=== PATIENT | male | born 1995 | race Caucasian/White ===

== ENCOUNTER 2017-10-05 18:01 | Inpatient (IN) | payer MEDICAID ==
[~2017-10-05] VITALS: Ht 177.8 cm; Wt 80.0 kg
[2017-10-05 19:57] LABS: BASOPHIL % 0.3 % (0-2); PLATELET COUNT 165 x10^3mcL (130-400); RED CELL DISTRIBUTION WIDTH 12.1 % (11.5-14.5)
[2017-10-05 20:06] LABS: CALCIUM 8.5 mg/dL (8.5-10.1); CARBON DIOXIDE 26.1 mmol/L (21-32); CHLORIDE SERUM 103 mmol/L (98-107); CREATININE SERUM 0.7 mg/dL (0.7-1.3); GFR1 > 60 mL/min; GLUCOSE SERUM 98 mg/dL (74-106); POTASSIUM SERUM 3.5 mmol/L (3.5-5.1); SODIUM SERUM 136 mmol/L (136-145)
[2017-10-05 21:31] VITALS: BP 144/87
[2017-10-05 21:34] VITALS: BP 142/87
[2017-10-05 21:49] LABS: CHOLESTEROL/HDL RATIO 2.8; MAGNESIUM 1.8 mg/dL (1.8-2.4); PHOSPHOROUS 3.8 mg/dL (2.5-4.9)
[2017-10-05 21:51] LABS: T3 TOTAL 1.17 ng/mL
[2017-10-05 21:52] LABS: FREE T4 0.97 ng/dL (0.76-1.46); FREE THYROXINE INDEX 2.7 ug/dL (1.4-4.5); T4(THYROXINE) 7.4 ug/dL (4.7-13.3)
[2017-10-05 22:10] LABS: microscopic required? NO
[2017-10-05 22:23] LABS: UA SPECIFIC GRAVITY 1.025 (1.005-1.035); urine erythrocyte NEGATIVE (NEGATIVE)
[2017-10-05 22:27] LABS: AMPHETAMINE QUAL UR POSITIVE (NEG <=1000)
[2017-10-06 06:08] LABS: BASOPHIL % 0.7 % (0-2); CALCIUM 8.3 mg/dL (8.5-10.1); CARBON DIOXIDE 27.4 mmol/L (21-32); CHLORIDE SERUM 107 mmol/L (98-107); CREATININE SERUM 0.8 mg/dL (0.7-1.3); GFR1 > 60 mL/min; GLUCOSE SERUM 103 mg/dL (74-106); PLATELET COUNT 154 x10^3mcL (130-400); POTASSIUM SERUM 3.7 mmol/L (3.5-5.1); RED CELL DISTRIBUTION WIDTH 12.1 % (11.5-14.5); SODIUM SERUM 139 mmol/L (136-145)
[2017-10-06 06:24] VITALS: BP 124/70
== END 2017-10-06 08:45 | disposition left against medical advice (07) | DRG 351 ==
LOC: ED 18:01 → DU 20:42
PROVIDERS: Emergency Medicine; ADMIT Family Medicine
DX: M65.841 Other synovitis and tenosynovitis, right hand (principal); F11.10 Opioid abuse, uncomplicated; F15.10 Other stimulant abuse, uncomplicated; Z68.25 Body mass index [BMI] 25.0-25.9, adult
CPT/HCPCS: 83880; 84439; 90715; J0690; J2270; J7030